=== PATIENT | male | born 1950 | race Caucasian/White ===

== ENCOUNTER 2017-09-22 22:15 | Observation (INO) | payer MEDICARE, OTHER ==
[~2017-09-22] VITALS: Ht 170.2 cm; Wt 114.4 kg
[~2017-09-22 22:15] MED LIST: ASPI-630 PO; CELE100C PO; FURO-69 PO; LISI1TAB3 PO; LISI1TAB5 PO; MAGN400T22 PO; METO50TA29 PO; POTA10CA PO; PROP225T PO; PROP325C4 PO; RIVA20TA2 PO
[2017-09-22] MEDS: IV NORMAL SALINE 1,000ML 1,000 ML IV SCH (23:00)
[2017-09-22 23:03] VITALS: BP 113/58
[2017-09-23] MEDS: diphenhydrAMINE HCL 25 MG CAPSULE PO PRN ×2 (01:21→11:14)
[2017-09-23] MEDS ORDERED: ACETAMINOPHEN 500 MG TABLET PO PRN (01:30)
[2017-09-23] MEDS: VANCOMYCIN PER PHARMACY MC PRN (01:41)
[2017-09-23 05:28] VITALS: BP 81/52
[2017-09-23 05:41] VITALS: BP 93/58
[2017-09-23] MEDS: IV NORMAL SALINE 1,000ML 1,000 ML IV SCH ×2 (05:55→19:10)
[2017-09-23 06:09] LABS: ALBUMIN 2.9 g/dL (3.4-5.0); ALBUMIN/GLOBULIN RATIO 1.1 (1.0-1.7); CALCIUM 8.3 mg/dL (8.5-10.1); CREATININE 1.7 mg/dL (0.7-1.3); GFR 40.2; POTASSIUM 4.1 mmol/L (3.5-5.1); TOTAL BILIRUBIN 0.9 mg/dL (0.2-1.0); TOTAL PROTEIN 5.6 g/dL (6.4-8.2)
[2017-09-23 06:12] LABS: BASO % 0 % (0-3); EOS % 0 % (0-3); HEMATOCRIT 37.7 % (39.0-53.0); HEMOGLOBIN 13.4 g/dL (13.0-17.5); LYMPH # 0.1 x10^3/uL (1.0-4.8); LYMPH % 1 % (24-48); MEAN CORPUSCULAR HEMOGLOBIN 35 pg (25-35); MEAN CORPUSCULAR HGB CONC 36 g/dL (31-37); MEAN CORPUSCULAR VOLUME 98 fL (79-100); MONO # 0.2 x10^3/uL (0.0-1.1); MONO % 2 % (0-9); NEUT # 9.9 x10^3uL (1.8-7.7); NEUT % 97 % (31-73); PLATELET COUNT 121 x10^3/uL (140-400); RED BLOOD COUNT 3.86 x10^6/uL (4.30-5.70); RED CELL DISTRIBUTION WIDTH 13.2 % (11.5-14.5); WHITE BLOOD COUNT 10.2 x10^3/uL (4.0-11.0)
[2017-09-23 06:37] LABS: BACTERIA,URINE FEW /HPF (0-FEW); BILIRUBIN,URINE NEG (NEG); CLARITY,URINE CLOUDY; COLOR,URINE YELLOW; GLUCOSE,URINE NEG (NEG); NITRITE,URINE NEG (NEG); SQUAMOUS EPITHELIAL CELL,UR FEW /LPF; UROBILINOGEN,URINE 0.2 mg/dL (0.2 mg/dL)
[2017-09-23 06:38] LABS: AMORPHOUS SEDIMENT,UR PRESENT /HPF; GRANULAR CASTS,URINE MANY /HPF; HYALINE CASTS, URINE FEW /HPF
[2017-09-23] MEDS: VANCOMYCIN 1.75 GM in IV NORMAL SALINE 500ML 500 ML IV SCH ×2 (08:24→19:10)
[2017-09-23 08:29] LABS: % BANDS 18 % (0-9); % METAS 2 % (0-0); % MONOS 1 % (0-10); % SEGS 79 % (35-66)
[2017-09-23 08:30] LABS: PLT ESTIMATE DECREASED (ADEQUATE); TOXIC VACUOLATION SLIGHT
[2017-09-23 08:31] LABS: TOXIC GRANULATION SLIGHT
--- NOTE | 2017-09-23 10:11 | DS ---
DATE OF DISCHARGE: HOSPITAL COURSE: A 67-year-old male came in with cellulitis of his legs. He is having sepsis. His blood pressure dropped last night. He was receiving some IV antibiotic therapy as an outpatient first time and his temperature spiked up to over 100 and his blood pressure dropped down into the 80s. The patient's pulse is 90, respiratory rate 20. The patient otherwise says he is doing a little better this morning, is receiving IV antibiotic therapy. We will get a PICC line placed. The patient's white count was 10, hemoglobin 13, platelets slightly low at 120. The patient's bands were elevated at 18. The patient's lactic acid was elevated at 2.3, creatinine of 1.7. No doubt the patient otherwise is resting fairly comfortably and making fairly good progress overall and still receiving IV vancomycin, needs PICC line and continue to be monitored on his creatinine as well as other factors. PHYSICAL EXAMINATION: LUNGS: Clear. CARDIOVASCULAR: Stable. ABDOMEN: Soft, nontender, slightly protuberant. EXTREMITIES: Leg still inflamed and lower extremities are inflamed and irritated. Pulses noted distally. IMPRESSION: Sepsis, chronic kidney disease 3, hematuria, type 2 diabetes. PLAN: Continue to monitor the patient accordingly. IV antibiotic therapy, sliding scale and then make adjustments accordingly with his IV antibiotic therapy. JAYLA HERNANDEZ MD DR: LUZMARIA/dalia JOB#: [id number] / [id number]
[2017-09-23] MEDS: RIVAROXABAN 10 MG TABLET. PO SCH (11:23)
[2017-09-23 11:41] VITALS: BP 116/67
[2017-09-23] MEDS ORDERED: PROPAFENONE HCL 325 MG PO SCH (14:00)
[2017-09-23 15:38] VITALS: BP 115/67
[2017-09-23 19:26] VITALS: BP 114/63
[2017-09-23] MEDS: ZOLPIDEM 5 MG TABLET. PO PRN (22:49)
[2017-09-23] MEDS: LACTOBACILLUS RHAMNOSUS GG 1 CAPSULE. PO SCH (22:49)
[2017-09-23 23:06] VITALS: BP 112/78
[2017-09-24 00:09] LABS: HEMOGLOBIN A1C 5.9 % (4.8-5.6)
[2017-09-24] MEDS: IV NORMAL SALINE 1,000ML 1,000 ML IV SCH ×6 (02:15→20:53)
[2017-09-24 05:24] LABS: BASO % 1 % (0-3); CALCIUM 8.2 mg/dL (8.5-10.1); CREATININE 1.5 mg/dL (0.7-1.3); EOS # 0.1 x10^3/uL (0.0-0.7); EOS % 2 % (0-3); GFR 46.4; HEMOGLOBIN 12.3 g/dL (13.0-17.5); LYMPH # 0.3 x10^3/uL (1.0-4.8); LYMPH % 7 % (24-48); MEAN CORPUSCULAR HEMOGLOBIN 34 pg (25-35); MEAN CORPUSCULAR HGB CONC 35 g/dL (31-37); MEAN CORPUSCULAR VOLUME 98 fL (79-100); MONO # 0.2 x10^3/uL (0.0-1.1); MONO % 5 % (0-9); NEUT # 3.9 x10^3uL (1.8-7.7); NEUT % 86 % (31-73); PLATELET COUNT 88 x10^3/uL (140-400); POTASSIUM 3.9 mmol/L (3.5-5.1); RED BLOOD COUNT 3.58 x10^6/uL (4.30-5.70); RED CELL DISTRIBUTION WIDTH 13.2 % (11.5-14.5); WHITE BLOOD COUNT 4.5 x10^3/uL (4.0-11.0)
[2017-09-24 05:35] VITALS: BP 116/67
[2017-09-24 08:01] LABS: VANC TR 29.3 mcg/mL (10.0-20.0)
[2017-09-24] MEDS: LACTOBACILLUS RHAMNOSUS GG 1 CAPSULE. PO SCH ×2 (08:55→20:06)
[2017-09-24] MEDS: RIVAROXABAN 10 MG TABLET. PO SCH (08:55)
[2017-09-24] MEDS: VANCOMYCIN PER PHARMACY MC PRN (09:36)
[2017-09-24 10:42] VITALS: BP 119/67
--- NOTE | 2017-09-24 11:07 | RAD ---
CHEST PA LATERAL Clinical Indication: sepsis Comparison: September 14, 2015 Technique: Frontal and lateral views of the chest are obtained. Findings: A right upper extremity PICC line is seen with the distal tip terminating over the expected distal SVC. No focal consolidation is seen. Mild perihilar opacities are present. No pleural effusion or pneumothorax is seen. Cardiomediastinal silhouette appears within upper limits of normal in size, stable from previous exam. Visualized osseous structures and overlying soft tissues demonstrate no acute interval change. IMPRESSION: No focal consolidation to suggest pneumonia. Mild perihilar opacities likely represent atelectasis, developing infiltrate felt less likely.
[2017-09-24 14:31] VITALS: BP 157/81
--- NOTE | 2017-09-24 19:08 | PN ---
DATE: SUBJECTIVE: A 67-year-old male with sepsis. The patient has cellulitis to his legs and is feeling fairly good overall. The patient otherwise is making good progress overall. The patient otherwise continues with IV vancomycin. The patient was septic and still running low grade temperature, pulse still over 100. He has got a PICC line and receiving IV antibiotic therapy. The patient's urine culture is still pending, so he is still on IV antibiotic therapy. His platelet count has gone down from 120 down to 88,000, probably related to his medications, otherwise, we will continue to monitor. He is on Xarelto, but no obvious signs of bleeding noted. In any case, the patient is making good progress overall. ____ Correction on yesterday's note, it was noted as a discharge, but actually should just be a progress note. OBJECTIVE: VITAL SIGNS: In any case, the patient's blood pressure 120/70, respiratory rate 20, pulse 110. LUNGS: Diminished, but clear. CARDIOVASCULAR: Stable. ABDOMEN: Soft, nontender. EXTREMITIES: Legs show marked improvement. Continue with IV antibiotic therapy. IMPRESSION: Cellulitis to the legs, sepsis and thrombocytopenia. JAYLA HERNANDEZ MD DR: LUZMARIA/dalia JOB#: [id number] / [id number]
[2017-09-24 19:15] VITALS: BP 148/56
[2017-09-24] MEDS: ZOLPIDEM 5 MG TABLET. PO PRN (22:38)
[2017-09-24 23:02] VITALS: BP_SYST 115; BP_SYST 147; BP_DIAS 55; BP_DIAS 74
[2017-09-25] MEDS: IV NORMAL SALINE 1,000ML 1,000 ML IV SCH (02:05)
[2017-09-25 03:10] VITALS: BP 142/60
[2017-09-25 06:05] VITALS: BP 129/66
[2017-09-25] MEDS ORDERED: VANCOMYCIN RANDOM LEVEL. MC ONE (07:30)
[2017-09-25] MEDS: RIVAROXABAN 10 MG TABLET. PO SCH (08:42)
[2017-09-25] MEDS: LACTOBACILLUS RHAMNOSUS GG 1 CAPSULE. PO SCH (08:42)
[2017-09-25] MEDS ORDERED: VANCOMYCIN 1.75 GM in IV NORMAL SALINE 500ML 500 ML IV SCH (09:00)
[2017-09-25] MEDS: VANCOMYCIN PER PHARMACY MC PRN (09:05)
[2017-09-25] MEDS ORDERED: [UNRECOGNIZED DRUG - CODE] IV (10:10)
[2017-09-25] MEDS ORDERED: LACT1CAP19 PO (10:12)
[2017-09-25] MEDS ORDERED: LISINOPRIL 10 MG TABLET PO SCH (10:30)
[2017-09-25] MEDS ORDERED: FUROSEMIDE 20 MG TABLET PO SCH (10:30)
[2017-09-25] MEDS ORDERED: MAGNESIUM OXIDE 400 MG TABLET PO SCH (10:30)
[2017-09-25] MEDS ORDERED: POTASSIUM CHLORIDE 10 MEQ TABLET.ER. PO SCH (10:30)
[2017-09-25 11:03] VITALS: BP 147/65
[2017-09-25 11:09] VITALS: BP 147/65
[2017-09-25] MEDS ORDERED: METO-247 PO (14:25)
[2017-09-25] MEDS ORDERED: LISI1TAB5 PO (14:25)
[2017-09-26] MEDS ORDERED: LISINOPRIL 20 MG TABLET PO SCH (09:00)
[2017-09-26] MEDS ORDERED: METOPROLOL SUCC 24HR ER 50 MG TAB.ER.24H. PO SCH (09:00)
[2017-09-26] MEDS ORDERED: hydroCHLOROthiazide 12.5 MG CAPSULE PO SCH (09:00)
== END 2017-09-25 14:55 | disposition home or self-care (01) ==
LOC: 1 SOUTH 22:15
PROVIDERS: ADMIT Family Medicine; ATTEND Family Medicine
DX: A41.9 Sepsis, unspecified organism (principal); L03.116 Cellulitis of left lower limb; L03.115 Cellulitis of right lower limb; Z79.01 Long term (current) use of anticoagulants; D69.6 Thrombocytopenia, unspecified
CPT/HCPCS: 36415; 36569; 71020; 80048; 80053; 80202; 81001; 82947; 83036; 83605; 85007; 85025; 87040; 87086; 96361; 96365; 96366; 96367; 96375; 97161; 97165; G0378; G0379; G8987; G8988; G8989; J1956; J3370; J7040; Q0163; J7030

== ENCOUNTER → 2019-07-02 | Day surgery (SDC) | payer MEDICARE, OTHER ==
[~2019-07-02] MED LIST changes: +ACETAMINOPHEN 325 MG TABLET PO PRN; +ALBUTEROL SULFATE 2.5 MG/3 ML NEBU. NEB PRN; +ATROPINE 0.5 MG/5 ML DISP.SYRIN. IV PRN; +FLEC50TA PO; +IV RINGERS SOLUTION,LACTATED 1,000 ML IV SCH; +LACT1CAP19 PO; +LISI1TAB19 PO; +LISI1TAB23 PO; -LISI1TAB3 PO; -LISI1TAB5 PO; +METO-247 PO; +MIDAZOLAM HCL PF 2 MG/2 ML VIAL. IV PRN; +OMEG-33 PO; +ONDANSETRON PF 4 MG/2 ML VIAL. IV PRN; +PHENOL ORAL SPRAY 177ML BOTTLE. MM PRN; +PROPOFOL 10,000 MCG/ML (20ML) VIAL IV ONE; +VANC1.756 IV; +diphenhydrAMINE 50 MG/ML VIAL IV PRN
[2019-07-02 11:15] VITALS: BP 135/83
== END ==
LOC: SURG 09:30
PROVIDERS: ATTEND Internal Medicine Gastroenterology
DX: Z12.11 Encounter for screening for malignant neoplasm of colon (principal); K63.89 Other specified diseases of intestine; I10 Essential (primary) hypertension; Z98.890 Other specified postprocedural states; Z80.0 Family history of malignant neoplasm of digestive organs; Z96.659 Presence of unspecified artificial knee joint; Z85.828 Personal history of other malignant neoplasm of skin
CPT/HCPCS: G0105; J2704; J7120

== ENCOUNTER → 2020-10-15 | Outpatient (CLI) | payer MEDICARE, OTHER ==
[2019-07-02 11:15] VITALS: BP 135/83
[~2020-10-15] MED LIST changes: -ACETAMINOPHEN 325 MG TABLET PO PRN; -ALBUTEROL SULFATE 2.5 MG/3 ML NEBU. NEB PRN; -ATROPINE 0.5 MG/5 ML DISP.SYRIN. IV PRN; -IV RINGERS SOLUTION,LACTATED 1,000 ML IV SCH; -LISI1TAB19 PO; +LISI1TAB37 PO; -MIDAZOLAM HCL PF 2 MG/2 ML VIAL. IV PRN; -ONDANSETRON PF 4 MG/2 ML VIAL. IV PRN; -PHENOL ORAL SPRAY 177ML BOTTLE. MM PRN; -PROPOFOL 10,000 MCG/ML (20ML) VIAL IV ONE; -diphenhydrAMINE 50 MG/ML VIAL IV PRN
--- NOTE | 2020-10-15 10:47 | RAD ---
Right lower extremity venous duplex study 10/15/2020 10:44 AM Clinical History: Reason: RIGHT LEG SWELLING; VENOUS INSUFFICIENCY / Spl. Instructions: / History: Technique: Using a combination of real time ultrasound imaging and color-flow and pulse Doppler imagi ng techniques, including spectral analysis, graded compression and augmentation, duplex evaluation of the deep venous system of the right lower extremity was performed. Multiple images were obtained. Findings: There is no sonographic evidence of deep venous thrombosis involving the visualized deep ve nous structures of the right lower extremity Impression: No evidence of deep venous thrombosis involving the right lower extremity Electronically signed by: Ken Sanchez MD (10/15/2020 10:44 AM) [id number]
== END ==
LOC: US 10:09
PROVIDERS: ATTEND Nurse Practitioner Adult Health
DX: R22.41 Localized swelling, mass and lump, right lower limb (principal); I87.2 Venous insufficiency (chronic) (peripheral)
CPT/HCPCS: 93971

== ENCOUNTER → 2020-12-28 | Outpatient (CLI) | payer MEDICARE, OTHER ==
[2019-07-02 11:15] VITALS: BP 135/83
--- NOTE | 2020-12-28 13:44 | RAD ---
EXAM: Bilateral diagnostic mammogram; left breast sonogram. HISTORY: 70-year-old male presents with a left breast lump status post left breast trauma. TECHNIQUE: Full-field digital craniocaudal and mediolateral oblique views of both breasts are obtaine d for evaluation. Computer aided detection was applied. Sonographic imaging of the left breast was al so performed. COMPARISON: None. BREAST PARENCHYMAL DENSITY: Level B - Scattered fibroglandular densities. FINDINGS: There is asymmetric increased density within the anterior left greater the right breast. Th ere is no proximal distortion or suspicious calcification within either breast. Sonographic imaging of the left breast demonstrates heterogeneous hypoechogenicity within the subareo lar location, the appearance of which favors gynecomastia. There is superimposed edema or contusion w ithin the 12:00 position at the site of reported recent trauma. No hematoma or mass is seen. IMPRESSION: 1. Mammographic and sonographic findings favoring asymmetric left greater than right gynecomastia wit h superimposed left breast edema or contusion at the site of reported blunt trauma. No hematoma or ma ss is seen. Correlate for possible drug or endocrine related etiologies for gynecomastia. 2. BI-RADS Category 2: Benign finding(s). Continued clinical follow-up of palpable abnormalities is r ecommended. Repeat imaging can be performed if there is increasing or continuing clinical concern. Ne gative imaging should not preclude the decision to biopsy a palpable abnormality if there is continue d concern. If your mammogram demonstrates that you have dense breast tissue, which could hide abnormalities, and if you have other risk factors for breast cancer that have been identified, you might benefit from s upplemental screening tests that may be suggested by your ordering physician. Dense breast tissue, i n and of itself, is a relatively common condition. This information is not provided to cause undue c oncern, but rather to raise your awareness and to promote discussion with your physician regarding th e presence of other risk factors, in addition to dense breast tissue. A report of your mammography re sults will be sent to you and your physician. You should contact your physician if you have any ques tions or concerns regarding this report. Mammography is a sensitive method for finding small breast cancers, but it does not detect them all a nd is not a substitute for careful clinical examination. A negative mammogram does not negate a clin ically suspicious finding and should not result in delay in biopsying a clinically suspicious abnorma lity. PQRS compliance statement - Patient information was entered into a reminder system with a target due date for the next mammogram. "Our facility is accredited by the [employer] Mammography [employer]." Electronically signed by: Ernestina Haynes MD (12/28/2020 1:42 PM) [id number]
== END ==
LOC: MAMMO 12:42
PROVIDERS: ATTEND Family Medicine
DX: N62 Hypertrophy of breast (principal); N63.42 Unspecified lump in left breast, subareolar
CPT/HCPCS: 76641; 77066

== ENCOUNTER → 2021-06-17 | Outpatient (CLI) | payer MEDICARE, OTHER ==
[2019-07-02 11:15] VITALS: BP 135/83
--- NOTE | 2021-06-17 13:01 | RAD ---
US DPLX VENOUS EXTREMITY LOWER RT History: Reason: RLE SWELLING / Spl. Instructions: / History: Comparison: None. Technique: Multiple longitudinal and transverse high resolution real-time images of the venous system of right lower extremity were obtained with color and Doppler sampling. Findings: Patent right common femoral, deep femoral, superficial femoral and popliteal veins. Degraded evaluati on of the peroneal veins due to subcutaneous edema. No definite thrombosis. Impression: 1. No evidence of deep vein thrombosis. Electronically signed by: Alex Mckeon DO (06/17/2021 12:59 PM) [id number]
== END ==
LOC: US 12:28
PROVIDERS: ATTEND Nurse Practitioner Adult Health
DX: R22.41 Localized swelling, mass and lump, right lower limb (principal); M79.604 Pain in right leg
CPT/HCPCS: 93971

== ENCOUNTER → 2021-08-06 | Outpatient (CLI) | payer MEDICARE, OTHER ==
[2019-07-02 11:15] VITALS: BP 135/83
[~2021-08-06] MED LIST changes: +IOHEXOL 350 MG/ML 100 ML VIAL. IV ONE
[2021-08-06 09:51] LABS: BASO % 1 % (0-3); EOS # 0.2 x10^3/uL (0.0-0.7); EOS % 5 % (0-3); HEMATOCRIT 35.9 % (39.0-53.0); HEMOGLOBIN 12.1 g/dL (13.0-17.5); LYMPH % 24 % (24-48); MEAN CORPUSCULAR HEMOGLOBIN 34 pg (25-35); MEAN CORPUSCULAR HGB CONC 34 g/dL (31-37); MEAN CORPUSCULAR VOLUME 102 fL (79-100); MONO # 0.4 x10^3/uL (0.0-1.1); MONO % 9 % (0-9); NEUT # 2.5 x10^3uL (1.8-7.7); NEUT % 61 % (31-73); PLATELET COUNT 136 x10^3/uL (140-400); RED BLOOD COUNT 3.51 x10^6/uL (4.30-5.70); RED CELL DISTRIBUTION WIDTH 13.7 % (11.5-14.5); WHITE BLOOD COUNT 4.1 x10^3/uL (4.0-11.0)
[2021-08-06 09:58] LABS: GFR 73.2
--- NOTE | 2021-08-06 13:48 | RAD ---
EXAM: CT angiography of the chest with intravenous contrast. HISTORY: Elevated d-dimer. Shortness of breath. TECHNIQUE: Computed tomographic images of the chest were obtained following the administration of int ravenous contrast according to angiography protocol. Multiplanar reformatting was performed and three dimensional maximum intensity projection images were obtained. *One or more of the following individualized dose reduction techniques were utilized for this examina tion: 1. Automated exposure control. 2. Adjustment of the mA and/or kV according to patient size. 3. Use of iterative reconstruction technique. COMPARISON: None. FINDINGS: There is no evidence of pulmonary embolism. There is cardiomegaly. There are prominent cent ral pulmonary vessels, suggesting a component of pulmonary artery hypertension. There are nonspecific mediastinal and hilar lymph nodes, likely physiologic or reactive in etiology. There is gynecomastia . There is no pneumothorax or pleural effusion. There is mild emphysema and mild air trapping. There is bilateral posterior dependent and basilar atelectasis. There is no suspicious pulmonary nodule. Th ere is no acute finding involving the upper abdomen. There is no acute or suspicious osseous finding. There are degenerative changes throughout the spine. IMPRESSION: 1. No evidence of pulmonary embolism. 2. Mild emphysema and mild bilateral air trapping. No consolidated infiltrate is seen. 3. Nonspecific mediastinal and hilar lymph nodes, likely physiologic or reactive in etiology. Electronically signed by: Ernestina Haynes MD (08/06/2021 1:46 PM) [facility]
== END ==
LOC: CT 09:01
PROVIDERS: ATTEND Nurse Practitioner Adult Health
DX: J43.9 Emphysema, unspecified (principal); R79.1 Abnormal coagulation profile
CPT/HCPCS: 36415; 71275; 82565; 85025; Q9967